=== PATIENT | female | born 1965 | race Two or more races ===

== ENCOUNTER 2021-06-06 06:33 | Day surgery (SDC) | payer OTHER | END 2021-06-06 15:15 | disposition home or self-care (01) | LOC: CIR.AMB 06:33 | PROVIDERS: ATTEND Obstetrics & Gynecology | DX: N84.0 Polyp of corpus uteri (principal); Z20.822 Contact with and (suspected) exposure to COVID-19 ==

== ENCOUNTER 2022-06-27 17:37 | Inpatient (IN) | payer OTHER ==
[~2022-06-27] VITALS: Ht 167.6 cm; Wt 57.8 kg
== END 2022-07-04 11:18 | disposition home or self-care (01) | DRG 743 ==
LOC: O/R 07-03 07:25 → OB/GYN 07-03 07:25 → SURG 07-03 08:45 → SURH 07-03 15:52 → OB/GYN 07-03 15:59
PROVIDERS: ADMIT Obstetrics & Gynecology; ATTEND Obstetrics & Gynecology
PROC: 0UT74ZZ Resection of Bilateral Fallopian Tubes, Percutaneous Endoscopic Approach (ICD-10-PCS; 2022-07-03)
PROC: 0UT24ZZ Resection of Bilateral Ovaries, Percutaneous Endoscopic Approach (ICD-10-PCS; 2022-07-03)
PROC: 0UT94ZZ Resection of Uterus, Percutaneous Endoscopic Approach (ICD-10-PCS; principal; 2022-07-03 09:30)
DX: D25.1 Intramural leiomyoma of uterus (principal); D25.2 Subserosal leiomyoma of uterus; N80.0 Endometriosis of uterus; N72 Inflammatory disease of cervix uteri; N84.0 Polyp of corpus uteri; N84.1 Polyp of cervix uteri; Z20.822 Contact with and (suspected) exposure to COVID-19